=== PATIENT | female | born 1955 | race Caucasian/White ===

== ENCOUNTER 2018-12-11 15:19 | Emergency (ER) | payer MEDICARE, BC ==
--- OUTSIDE RECORDS SUMMARY | 2018-12-11 16:06 | XMS REPORT | Summary of Care ---
:1955 Author Organization [facility] Address [address] [place] [address] Care Team Providers Name Role Phone Sugey Nathan MD Primary Care Provider Reason for Visit Reason Comments Follow Up lab results Encounter Details Date Type Department Care Team Description 12/01/2018 Office Visit [facility] [place], Carpal tunnel syndrome of right wrist (Primary Dx); Practice MD Sugey Iron deficiency; [address] [place] [address] Elevated TSH; [place], [place] [id number] [place] [id number] Menopause; [phone] Flu vaccine need Allergies No Known Allergiesdocumented as of this encounter (statuses as of 12/01/2018) Medications Medication Sig Dispensed Refills Start Date End Date Status Ferrous Sulfate Take by 0 Active (IRON) 325 (65 Fe) mouth. MG Oral Tab Nutritional Take by 0 Active Supplements mouth. (VITAMIN D MAINTENANCE PO) Omeprazole 20 MG Take 1 Tab by 30 Tab 1 03/15/2018 12/01/2018 Discontinued Oral Tab EC mouth DAILY. Omeprazole delayed Take 20 mg by 30 Cap 1 05/23/2018 12/01/2018 Discontinued rel cap 20 MG Oral mouth DAILY. CAPSULE DELAYED RELEASE documented as of this encounter (statuses as of 12/01/2018) Active Problems Problem Noted Date Celiac disease 10/26/2012 Overview: Diagnosis 2006 esophago-gastroduodenoscopy with biopsy documented as of this encounter (statuses as of 12/01/2018) Immunizations Name Administration Dates Next Due Influenza (IM) Preservative Free 12/01/2018, 03/15/2018 documented as of this encounter Social History Tobacco Use Types Packs/Day Years Used Date Never Smoker Smokeless Tobacco: Never Used Alcohol Use Drinks/Week oz/Week Comments No Sex Assigned at Date Recorded Not on file Job Start Date Occupation Industry Not on file Not on file Not on file Travel History Travel Start Travel End No recent travel history available. documented as of this encounter Last Filed Vital Signs Vital Sign Reading Time Taken Comments Blood Pressure 110/70 12/01/2018 11:03 AM EDT Pulse 74 12/01/2018 11:03 AM EDT Temperature 36.6 12/01/2018 11:03 AM EDT C (97.8 F) Respiratory Rate - - Oxygen Saturation 97% 12/01/2018 11:03 AM EDT Inhaled Oxygen Concentration - - Weight 72.2 kg (159 lb 1.6 oz) 12/01/2018 11:03 AM EDT Height 157.5 cm (5' 2") 12/01/2018 11:03 AM EDT Body Mass Index 29.1 12/01/2018 11:03 AM EDT documented in this encounter Patient Instructions Patient InstructionsSugey Nathan MD - 12/01/2018 11:00 AM EDT1. Wear wrist splint on R wrist when asleep and with R wrist use 2. Adjust chair jong - so wrists are not angled when you are working on computer. Use wrist rest cushions when typing and using computer mouse 3. Schedule Medicare wellness, Dexa scan 4. Stop Iron 5. Repeat non fasting blood tests in 1 month documented in this encounter Progress Notes Sugey Nathan MD - 12/01/2018 11:00 AM EDT PATIENT: Jillian Euceda : 1955 DATE OF SERVICE: 12/01/2018 Complains of numbness of radial aspect of right hand, especially with use of the hand and at night. Started PT for CTS Also comes follow up Iron deficiency, borderline TSH BP 110/70 (BP Location: Left arm, Patient Position: Sitting) | Pulse 74 | Temp 97.8 F (36.6 C) | Ht 5' 2" (1.575 m) | Wt 159 lb 1.6 oz (72.2 kg ) | SpO2 97% | BMI 29.10 kg/m General appearance: alert, well appearing, and in no distress. Hand exam revealed bilaterally normal motor power and no atrophy. RIGHT hand: Phalen's sign positive - Tinel's sign is positive. LEFT hand: Phalen is negative - Tinel is negative. CBC, Iron - normal, TSH - stable, slightly elevated Component Latest Ref Rng & Units 11/09/2018 11/09/2018 11/09/2018 11/09/201811/09/2018 2:02 PM 2:02 PM 2:02 PM 2:02 PM 2:02 PM 2:02 PM WBC COUNT 3.98 - 10.04 K/uL 6.11 RBC 3.93 - 5.22 M/UL 4.97 Hemoglobin 11.2 - 15.7 g/dL 13.6 Hematocrit 34.1 - 44.9 % 42.4 MCV 79.4 - 94.8 FL 85.3 MCH 25.6 - 32.2 PG 27.4 MCHC 32.2 - 35.5 g/dL 32.1 (L) Platelet Count 182 - 369 K/uL 257 MPV 9.4 - 12.3 FL 10.7 RDW 11.7 - 14.4 % 13.5 NEUTROPHILS 34.0 - 71.1 % 54.6 Lymphocyte % 19.3 - 51.7 % 29.3 MONOCYTES 4.7 - 12.5 % 10.5 Eosinophils 0.7 - 5.8 % 4.6 Basophil % 0.1 - 1.2 % 0.8 nRBC % 0.0 - 0.2 % 0.0 Neutrophil # 1.56 - 6.13 K/UL 3.34 Lymphocyte # 1.18 - 3.74 K/UL 1.79 Monocyte # 0.24 - 0.86 K/UL 0.64 Eosinophil # 0.04 - 0.36 K/UL 0.28 Basophil # 0.01 - 0.08 K/UL 0.05 Immature Gran % 0.0 - 0.4 % 0.2 Immature Gran # 0.00 - 0.03 K/uL 0.01 NRBC # 0.00 - 0.12 K/uL 0.00 Free T4 0.8 - 2.2 NG/DL 0.9 T3 Total Charity 80 - 200 ng/dl 131 TSH 0.47 - 4.68 uIu/ml 5.47 (H) Iron Serum 37 - 170 UG/DL 86 Ferritin 11.1 - 264.0 NG/ML 34.0 Patient advised on tests results ICD-9-CM ICD-10-CM 1. Carpal tunnel syndrome of right wrist Continue PT 354.0 G56.01 2. Iron deficiency 280.9 E61.1 FERRITIN Will try to stop Iron supplement IRON CBC WITH DIFFERENTIAL 3. Elevated TSH Stable. Will recheck in 3 months 794.5 R79.89 Patient Instructions 1. Wear wrist splint on R wrist when asleep and with R wrist use 2. Adjust chair jong - so wrists are not angled when you are working on computer. Use wrist rest cushions when typing and using computer mouse 3. Schedule Medicare wellness, Dexa scan 4. Stop Iron 5. Repeat non fasting blood tests in 1 month Author: Sugey Nathan MD 12/01/2018 11:35 documented in this encounter Plan of Treatment Date Type Specialty Care Team Description 12/14/2018 Ancillary Procedure Radiology 01/02/2019 Lab Internal Medicine 03/16/2019 Office Visit [facility] Sugey Nathan MD [address] [place] [address] [phone] Name Type Priority Associated Diagnoses Order Schedule FERRITIN Lab Routine Iron deficiency Expected: 12/01/2018 (Approximate), Expires: 12/02/2019 IRON Lab Routine Iron deficiency Expected: 12/01/2018 (Approximate), Expires: 12/02/2019 CBC WITH DIFFERENTIAL Lab Routine Iron deficiency Expected: 12/01/2018 (Approximate), Expires: 12/02/2019 XR DEXA SCAN 1 OR MORE Imaging Routine Menopause Expected: 12/01/2018, SITES Expires: 05/19/2021 Health Maintenance Due Date Last Done Comments MEDICARE ANNUAL WELLNESS VISIT 1955 ZOSTER IMMUNIZATION SERIES (1 10/10/2003 of 2) MAMMOGRAM (SCREENING) 10/06/2018 10/06/2017, 06/15/2012 OSTEOPOROSIS SCREENING 2018 PNEUMOCOCCAL 65+YRS (1 of 2 - 2018 PCV13) INFLUENZA VACCINE (#1) 2018 03/15/2018 DIABETES SCREENING 03/16/2019 03/16/2018 DEPRESSION SCREENING 11/10/2019 11/09/2018 FALL RISK ASSESSMENT 12/02/2019 12/01/2018, 12/01/2018 LIPID DISORDER SCREENING 03/16/2023 03/16/2018, 10/26/2012 COLONOSCOPY SCREENING 06/08/2028 06/08/2018, 10/11/2007 HPV IMMUNIZATION SERIES Aged Out No longer eligible based on patient's age to complete this topic MENINGOCOCCAL VACCINE IMM Aged Out No longer eligible based on patient's age to complete this topic documented as of this encounter Results Not on filedocumented in this encounter Visit Diagnoses Diagnosis Carpal tunnel syndrome of right wrist - Primary Carpal tunnel syndrome Iron deficiency Iron deficiency anemia, unspecified Elevated TSH Other abnormal blood chemistry Menopause Asymptomatic postmenopausal status (age-related) (natural) Flu vaccine need Need for prophylactic vaccination and inoculation against influenza documented in this encounter Insurance Payer Benefit Plan / Subscriber ID Effective Dates Phone Address Type Group MEDICARE MEDICARE PART A & xxxxxxxxxxx 2018-Present Medicare B [employer] xxxxxxxxxxxx 2018-Present [employer] Name Account Type Relation to Date of Phone Billing Patient Address Gino Euceda Personal/Family 1955 [address] (Home) [place], [place] [phone] (Work) documented as of this encounter
[2018-12-11 16:14] VITALS: BP 117/79
--- NOTE | 2018-12-11 16:31 | UC ---
Skin Complaint HPI - HPI Summary HPI Summary: 63 yo female developed a very puritic rash while camping in [place] onset 4-5 days ago initially looked like typical insect bites now some on her legs have blistered - History of Current Complaint Chief Complaint: UCRash Time Seen by Provider: 12/11/18 16:17 Stated Complaint: BLISTERS ON ANKLE/SKIN ISSUE UPPER BODY Hx Obtained From: Patient Onset/Duration: Gradual Onset, Lasting Days Timing: Constant Onset Severity: Mild Current Severity: Moderate Pain Intensity: 0 Pain Scale Used: 0-10 Numeric Location: Other - legs and trunk Character: Pruritus, Redness, Raised Aggravating Factor(s): Nothing Alleviating Factor(s): Nothing Associated Signs & Symptoms: Positive: Rash - Allergy/Home Medications Allergies/Adverse Reactions: Allergies Allergy/AdvReac Type Severity Reaction Status Date / Time No Known Allergies Allergy Verified 12/11/18 16:07 Home Medications: Home Medications Cholecalciferol TAB* [Vitamin D TAB*] 1,000 unit PO DAILY 12/11/18 [History Confirmed 12/11/18] PMH/Surg Hx/FS Hx/Imm Hx Previously Healthy: Yes - Surgical History Surgical History: None - Family History Known Family History: Positive: Hypertension, Non-Contributory - Social History Alcohol Use: None Substance Use Type: None Smoking Status (MU): Never Smoked Tobacco - Immunization History Most Recent Tetanus Shot: unknown Review of Systems All Other Systems Reviewed And Are Negative: Yes Constitutional: Positive: Negative Skin: Positive: Rash Eyes: Positive: Negative ENT: Positive: Negative Respiratory: Positive: Negative Cardiovascular: Positive: Negative Gastrointestinal: Positive: Negative Genitourinary: Positive: Negative Motor: Positive: Negative Neurovascular: Positive: Negative Musculoskeletal: Positive: Negative Neurological: Positive: Negative Psychological: Positive: Negative Physical Exam Triage Information Reviewed: Yes Appearance: Well-Appearing, No Pain Distress, Well-Nourished Vital Signs: Initial Vital Signs Temp 98.8 F 12/11/18 16:08 Pulse 70 12/11/18 16:08 Resp 16 12/11/18 16:08 BP 117/79 12/11/18 16:08 Pulse Ox 97 12/11/18 16:08 Vital Signs Reviewed: Yes Eyes: Positive: Conjunctiva Clear ENT: Positive: Hearing grossly normal. Negative: Nasal congestion, Nasal drainage, Trismus, Muffled voice, Hoarse voice Neck: Positive: Supple, Nontender, No Lymphadenopathy Respiratory: Positive: Lungs clear, Normal breath sounds, No respiratory distress, No accessory muscle use Cardiovascular: Positive: RRR, No Murmur Abdomen Description: Positive: Nontender Musculoskeletal: Positive: ROM Intact, No Edema Neurological: Positive: Alert Psychological Exam: Normal Skin Exam: Other - multiple papules on legs and trunk (red) many on legs have formed blisters none look infected blisters intact Course/Dx - Diagnoses Provider Diagnosis: Chigger bites Discharge ED - Sign-Out/Discharge Documenting (check all that apply): Patient Departure All imaging exams completed and their final reports reviewed: No Studies - Discharge Plan Condition: Stable Disposition: HOME Prescriptions: Mupirocin 2% OINT* [Bactroban 2 % Oint*] 1 applic TOPICAL TID #1 tube Triamcinolone 0.5% CREAM(NF) [Triamcinolone 0.5% CREAM*] 1 applic TOPICAL QID PRN #60 tube PRN Reason: Itching Patient Education Materials: Insect Bite or Sting (ED) Referrals: Sugey Nathan MD [Primary Care Provider] - 1 Week Additional Instructions: I suspect these are chigger bites from your recent trip to [place] use the steroid cr for itch apply the antibiotic oint if the blisters pop and have a raw base recheck for concerns of infection - Billing Disposition and Condition Condition: STABLE Disposition: Home
== END 2018-12-11 16:39 | disposition home or self-care (01) ==
LOC: UCCORT 15:19
DX: B88.0 Other acariasis (principal)
CPT/HCPCS: 99212; G0463